=== PATIENT | male | born 2000 | race Caucasian/White ===

== ENCOUNTER 2020-03-15 06:10 | Emergency (ER) | payer SELFPAY ==
[~2020-03-15] VITALS: Ht 185.4 cm; Wt 77.3 kg
[2020-03-15 06:15] VITALS: TEMP 97.8
[2020-03-15 07:12] VITALS: BP 123/71; PULSE 78
== END 2020-03-15 07:20 | disposition home or self-care (01) ==
LOC: COL.ER 06:10
DX: S01.01XA Laceration without foreign body of scalp, initial encounter (principal); F10.129 Alcohol abuse with intoxication, unspecified; Z88.8 Allergy status to other drugs, medicaments and biological substances; W22.01XA Walked into wall, initial encounter

== ENCOUNTER → 2020-03-23 | Outpatient (CLI) | payer OTHER ==
[2020-03-23 17:42] VITALS: BP 112/69; PULSE 53; TEMP 98.3
== END ==
LOC: COL.ER 17:07
DX: Z48.02 Encounter for removal of sutures (principal)